=== PATIENT | male | born 1980 | race Caucasian/White ===

== ENCOUNTER 2017-01-01 06:55 | Emergency (ER) | payer OTHER ==
[~2017-01-01] VITALS: Ht 175.3 cm; Wt 80.3 kg
[~2017-01-01 06:55] MED LIST: ATARAX10 MG PO
[2017-01-01 08:47] LABS: HEMATOCRIT 35.5 % (38.0-50.0); MCH 30.4 PG (29.0-34.0); MCHC 33.5 G/DL (30.0-36.0); MCV 90.8 FL (86-99); MEAN PLAT.VOLUME 10.5 uM^3 (9.0-12.4); PLATELET COUNT 184 K/uL (156-360); RBC DIS.WIDTH-CV 12.6 % (11.8-14.6); RED BLOOD COUNT 3.91 M/uL (4.00-5.50); WHITE BLOOD COUNT 12.1 K/uL (4.1-10.2)
[2017-01-01 09:00] LABS: CHLORIDE 114 mEq/L (99-109); POTASSIUM 4.6 mEq/L (3.7-5.4); SODIUM 140 mEq/L (136-147)
[2017-01-01 09:01] LABS: GLUCOSE 96 mg/dL (70-99)
[2017-01-01 09:03] LABS: ANION GAP 5 MEQ/L (2-14)
[2017-01-01 09:05] LABS: GFR ESTIMATE (CALCULATED) > 59 mL/min/
[2017-01-01 09:06] LABS: UREA NITROGEN (BUN) 26 mg/dL (9-23)
[2017-01-01 09:09] LABS: ADD MIUA? NO; BILIRUBIN NEGATIVE; BLOOD NEGATIVE; COLOR YELLOW ((YELLOW)); GLUCOSE (STRIP) NEGATIVE; KETONES NEGATIVE; LEUKOCYTES NEGATIVE; NITRITE NEGATIVE; PH, URINE 5.5 (5-8); PROTEIN (STRIP) 30; SPECIFIC GRAVITY 1.024 (1.000-1.030); UCUL ADDED? NO; UROBILINOGEN 0.2 MG/DL (0.2-1.0)
[2017-01-01 09:23] LABS: AMPHETAMINE NEGATIVE (500 ng/mL); BARBITURATES NEGATIVE (200 ng/mL); BENZODIAZEPINES NEGATIVE (150 ng/mL); COCAINE NEGATIVE (150 ng/mL); METHADONE NEGATIVE (200 ng/mL); METHAMPHETAMINE NEGATIVE (500 ng/mL); OPIATES (MORPHINE) NEGATIVE (100 ng/mL); OXYCODONE NEGATIVE (100 ng/mL); PHENCYCLIDINE NEGATIVE (25 ng/mL); PROPOXYPHENE NEGATIVE (300 ng/mL); THC CANNABINOIDS NEGATIVE (50 ng/mL); TRICYCLIC ANTIDEPRESSANTS NEGATIVE (300 ng/mL)
[2017-01-01 09:24] LABS: INTERNAL CONTROLS VALID? YES
[2017-01-01 09:40] VITALS: BP 106/68
== END 2017-01-01 09:43 | disposition home or self-care (01) ==
LOC: EME 06:55
PROVIDERS: Emergency Medicine
DX: R55 Syncope and collapse (principal); E86.0 Dehydration; F17.200 Nicotine dependence, unspecified, uncomplicated; F19.10 Other psychoactive substance abuse, uncomplicated
CPT/HCPCS: 70450; 80048; 81003; 85027; 99281; 99284; J7030

== ENCOUNTER 2017-04-13 21:39 | Emergency (ER) | payer OTHER | END 2017-04-14 00:10 | disposition left against medical advice (07) | LOC: EME 21:39 | DX: Z53.21 Procedure and treatment not carried out due to patient leaving prior to being seen by health care provider (principal) ==

== ENCOUNTER 2017-04-22 17:41 | Emergency (ER) | payer OTHER | END 2017-04-22 17:52 | disposition left against medical advice (07) | LOC: EME 17:41 | DX: Z53.21 Procedure and treatment not carried out due to patient leaving prior to being seen by health care provider (principal) ==

== ENCOUNTER 2017-04-22 18:51 | Emergency (ER) | payer OTHER ==
[~2017-04-22] VITALS: Ht 177.8 cm; Wt 72.0 kg
[2017-04-22 19:11] VITALS: BP 106/67
== END 2017-04-22 19:28 | disposition home or self-care (01) ==
LOC: EME 18:51
DX: F43.9 Reaction to severe stress, unspecified (principal); Z04.6 Encounter for general psychiatric examination, requested by authority; F17.200 Nicotine dependence, unspecified, uncomplicated
CPT/HCPCS: 99281; 99282

== ENCOUNTER 2017-04-27 15:01 | Emergency (ER) | payer OTHER ==
[2017-04-27 15:22] LABS: EOSINOPHIL (%) 1.3 % (0-5); EOSINOPHIL COUNT 0.1 K/uL (0-0.3); HEMATOCRIT 37.9 % (38.0-50.0); IMMATURE GRANULOCYTE (%) 0.2 % (0.0-0.7); LYMPHOCYTE COUNT 1.7 K/uL (1.0-2.8); MCH 29.7 PG (29.0-34.0); MEAN PLAT.VOLUME 10.2 uM^3 (9.0-12.4); MONOCYTE (%) 6.1 % (3-12); MONOCYTE COUNT 0.4 K/uL (0-0.8); NEUTROPHIL (%) 64.7 % (45-76); PLATELET COUNT 187 K/uL (156-360); RBC DIS.WIDTH-CV 12.5 % (11.8-14.6); RED BLOOD COUNT 4.21 M/uL (4.00-5.50); WHITE BLOOD COUNT 6.1 K/uL (4.1-10.2)
[2017-04-27 15:32] LABS: AMYLASE 52 IU/L (1-118); CHLORIDE 103 mEq/L (99-109); POTASSIUM 3.4 mEq/L (3.7-5.4); SODIUM 138 mEq/L (136-147)
[2017-04-27 15:34] LABS: GLUCOSE 132 mg/dL (70-99)
[2017-04-27 15:36] LABS: ANION GAP 13 MEQ/L (2-14)
[2017-04-27 15:37] LABS: SERUM ETHYL ALCOHOL < 10 mg/dL
[2017-04-27 15:38] LABS: GFR ESTIMATE (CALCULATED) > 59 mL/min/
[2017-04-27 15:39] LABS: UREA NITROGEN (BUN) 14 mg/dL (9-23)
[2017-04-27 15:41] LABS: LIPASE 14 U/L (1.0-51.0)
[2017-04-27 16:54] LABS: CREATINE KINASE 372 IU/L (1-294)
[2017-04-27 16:59] LABS: ADD MIUA? NO; BILIRUBIN NEGATIVE; BLOOD NEGATIVE; COLOR STRAW ((YELLOW)); GLUCOSE (STRIP) NEGATIVE; KETONES NEGATIVE; LEUKOCYTES NEGATIVE; NITRITE NEGATIVE; PROTEIN (STRIP) NEGATIVE; SPECIFIC GRAVITY 1.008 (1.000-1.030); UCUL ADDED? NO; UROBILINOGEN 0.2 MG/DL (0.2-1.0)
[2017-04-27 17:28] LABS: ADD MEDTOX COMMENT Y; AMPHETAMINE NEGATIVE (500 ng/mL); BARBITURATES NEGATIVE (200 ng/mL); BENZODIAZEPINES NEGATIVE (150 ng/mL); COCAINE NEGATIVE (150 ng/mL); INTERNAL CONTROLS VALID? YES; METHADONE NEGATIVE (200 ng/mL); METHAMPHETAMINE NEGATIVE (500 ng/mL); OPIATES (MORPHINE) NEGATIVE (100 ng/mL); OXYCODONE NEGATIVE (100 ng/mL); PHENCYCLIDINE NEGATIVE (25 ng/mL); PROPOXYPHENE NEGATIVE (300 ng/mL); THC CANNABINOIDS PRESUMPTIVE POSITIVE (50 ng/mL); TRICYCLIC ANTIDEPRESSANTS NEGATIVE (300 ng/mL)
== END 2017-04-27 17:48 | disposition home or self-care (01) ==
LOC: EME 15:01 → TRA 15:01 → EME 15:01 → TRA 17:48
PROVIDERS: Emergency Medicine
PROC: 0HQ1XZZ Repair Face Skin, External Approach (ICD-10-PCS; principal; 2017-04-27)
DX: S01.81XA Laceration without foreign body of other part of head, initial encounter (principal); S02.40EA Zygomatic fracture, right side, initial encounter for closed fracture; F19.10 Other psychoactive substance abuse, uncomplicated; Y04.8XXA Assault by other bodily force, initial encounter; Y07.9 Unspecified perpetrator of maltreatment and neglect
CPT/HCPCS: 70450; 72125; 80048; 81003; 82150; 82550; 83690; 84999; 85025; 86900; 86901; 99281; 99285; G0480; J7030

== ENCOUNTER 2017-04-30 18:32 | Emergency (ER) | payer OTHER ==
[~2017-04-30] VITALS: Ht 177.8 cm; Wt 73.1 kg
[2017-04-30 20:02] VITALS: BP 111/56
== END 2017-04-30 20:04 | disposition home or self-care (01) ==
LOC: EME → EDBD 18:32 → EME 20:04
DX: T40.991A Poisoning by other psychodysleptics [hallucinogens], accidental (unintentional), initial encounter (principal); R41.82 Altered mental status, unspecified; F16.10 Hallucinogen abuse, uncomplicated; Y92.29 Other specified public building as the place of occurrence of the external cause; F17.200 Nicotine dependence, unspecified, uncomplicated
CPT/HCPCS: 99281; 99283

== ENCOUNTER 2017-05-29 20:08 | Emergency (ER) | payer OTHER ==
[~2017-05-29] VITALS: Ht 177.8 cm; Wt 65.6 kg
[2017-05-29 21:20] VITALS: BP 124/67
== END 2017-05-29 21:33 | disposition left against medical advice (07) ==
LOC: EME → EDBD 20:08 → EME 20:08
DX: R51 Headache (principal); F32.9 Major depressive disorder, single episode, unspecified; X83.8XXA Intentional self-harm by other specified means, initial encounter; F17.200 Nicotine dependence, unspecified, uncomplicated
CPT/HCPCS: 99281; 99284

== ENCOUNTER 2017-06-06 15:10 | Emergency (ER) | payer OTHER ==
[~2017-06-06] VITALS: Ht 177.8 cm; Wt 65.0 kg
[2017-06-06 17:15] VITALS: BP 115/76
== END 2017-06-06 17:33 | disposition home or self-care (01) ==
LOC: EME 15:10
DX: F12.10 Cannabis abuse, uncomplicated (principal); F17.200 Nicotine dependence, unspecified, uncomplicated
CPT/HCPCS: 99281; 99285; J7030

== ENCOUNTER 2017-06-25 07:17 | Emergency (ER) | payer OTHER ==
[~2017-06-25] VITALS: Ht 177.8 cm; Wt 68.8 kg
[2017-06-25 10:41] VITALS: BP 113/85
== END 2017-06-25 10:42 | disposition home or self-care (01) ==
LOC: EME 07:17
DX: T65.891A Toxic effect of other specified substances, accidental (unintentional), initial encounter (principal); R40.0 Somnolence; F17.210 Nicotine dependence, cigarettes, uncomplicated; Z59.0 Homelessness
CPT/HCPCS: 99281; 99282

== ENCOUNTER 2017-06-25 11:19 | Emergency (ER) | payer OTHER ==
[~2017-06-25] VITALS: Ht 177.8 cm; Wt 68.8 kg
[2017-06-25 16:10] VITALS: BP 109/68
== END 2017-06-25 16:12 | disposition home or self-care (01) ==
LOC: EME 11:19
DX: T65.891A Toxic effect of other specified substances, accidental (unintentional), initial encounter (principal); R40.0 Somnolence; F17.200 Nicotine dependence, unspecified, uncomplicated; Z59.0 Homelessness
CPT/HCPCS: 99281; 99284

== ENCOUNTER 2017-07-03 14:42 | Emergency (ER) | payer OTHER ==
[~2017-07-03] VITALS: Ht 180.3 cm; Wt 78.0 kg
[2017-07-03 15:36] LABS: HEMATOCRIT 33.1 % (38.0-50.0); MCH 30.6 PG (29.0-34.0); MCHC 33.5 G/DL (30.0-36.0); MCV 91.2 FL (86-99); MEAN PLAT.VOLUME 10.3 uM^3 (9.0-12.4); PLATELET COUNT 190 K/uL (156-360); RBC DIS.WIDTH-CV 12.5 % (11.8-14.6); RBC DIS.WIDTH-SD 41.7 % (39-53); RED BLOOD COUNT 3.63 M/uL (4.00-5.50); WHITE BLOOD COUNT 7.9 K/uL (4.1-10.2)
[2017-07-03 15:47] LABS: CHLORIDE 107 mEq/L (99-109); POTASSIUM 4.3 mEq/L (3.7-5.4); SODIUM 140 mEq/L (136-147)
[2017-07-03 15:48] LABS: GLUCOSE 114 mg/dL (70-99)
[2017-07-03 15:50] LABS: ANION GAP 8 MEQ/L (2-14)
[2017-07-03 15:51] LABS: SERUM ETHYL ALCOHOL < 10 mg/dL
[2017-07-03 15:52] LABS: GFR ESTIMATE (CALCULATED) > 59 mL/min/
[2017-07-03 15:53] LABS: UREA NITROGEN (BUN) 24 mg/dL (9-23)
[2017-07-03 15:55] LABS: CREATINE KINASE 189 IU/L (1-294); TOTAL CK 189 IU/L (1-294)
[2017-07-03 16:01] LABS: TROP-I INTERPRETATION NEGATIVE; TROPONIN-I < 0.01 ng/mL (0.0-0.30)
[2017-07-03 16:02] LABS: CK-MB 2.8 ng/mL (0.0-4.9)
[2017-07-03 17:08] VITALS: BP 116/75
== END 2017-07-03 17:09 | disposition home or self-care (01) ==
LOC: EME 14:42
PROVIDERS: Emergency Medicine
DX: T40.991A Poisoning by other psychodysleptics [hallucinogens], accidental (unintentional), initial encounter (principal); T52.8X1A Toxic effect of other organic solvents, accidental (unintentional), initial encounter; R46.89 Other symptoms and signs involving appearance and behavior; R53.83 Other fatigue; F16.10 Hallucinogen abuse, uncomplicated; F19.10 Other psychoactive substance abuse, uncomplicated; F17.200 Nicotine dependence, unspecified, uncomplicated
CPT/HCPCS: 80048; 82550; 82553; 84484; 85027; 99281; 99284; G0480; J2250; J7030

== ENCOUNTER 2017-07-28 21:17 | Emergency (ER) | payer OTHER ==
[~2017-07-28] VITALS: Ht 170.2 cm; Wt 73.0 kg
[2017-07-28 21:41] LABS: HEMATOCRIT 38.2 % (38.0-50.0); MCH 30.6 PG (29.0-34.0); MCHC 33.5 G/DL (30.0-36.0); MCV 91.4 FL (86-99); MEAN PLAT.VOLUME 9.8 uM^3 (9.0-12.4); PLATELET COUNT 235 K/uL (156-360); RBC DIS.WIDTH-CV 12.8 % (11.8-14.6); RBC DIS.WIDTH-SD 42.2 % (39-53); RED BLOOD COUNT 4.18 M/uL (4.00-5.50); WHITE BLOOD COUNT 7.8 K/uL (4.1-10.2)
[2017-07-28 21:52] LABS: CHLORIDE 105 mEq/L (99-109); POTASSIUM 3.9 mEq/L (3.7-5.4); SODIUM 138 mEq/L (136-147)
[2017-07-28 21:54] LABS: GLUCOSE 145 mg/dL (70-99)
[2017-07-28 21:55] LABS: ANION GAP 12 MEQ/L (2-14)
[2017-07-28 21:56] LABS: TOTAL BILIRUBIN 0.4 mg/dL (0.0-1.0)
[2017-07-28 21:57] LABS: SERUM ETHYL ALCOHOL < 10 mg/dL
[2017-07-28 21:58] LABS: ALKALINE PHOSPHATASE 68 IU/L (3-129); GFR ESTIMATE (CALCULATED) > 59 mL/min/
[2017-07-28 21:59] LABS: UREA NITROGEN (BUN) 22 mg/dL (9-23)
[2017-07-29 00:32] VITALS: BP 110/64
== END 2017-07-29 00:34 | disposition home or self-care (01) ==
LOC: EME 21:17
PROVIDERS: Emergency Medicine
DX: F19.10 Other psychoactive substance abuse, uncomplicated (principal); F17.200 Nicotine dependence, unspecified, uncomplicated
CPT/HCPCS: 80053; 81003; 85027; 99281; 99284; G0480

== ENCOUNTER 2017-07-30 13:19 | Emergency (ER) | payer OTHER ==
[~2017-07-30] VITALS: Ht 177.8 cm; Wt 70.0 kg
[2017-07-30 13:19] VITALS: BP 107/56
== END 2017-07-30 15:48 | disposition home or self-care (01) ==
LOC: EME 13:19
DX: F19.10 Other psychoactive substance abuse, uncomplicated (principal); F17.200 Nicotine dependence, unspecified, uncomplicated
CPT/HCPCS: 99281; 99283

== ENCOUNTER 2017-10-25 17:41 | Emergency (ER) | payer OTHER ==
[~2017-10-25] VITALS: Ht 177.8 cm; Wt 69.2 kg
[2017-10-25 17:43] VITALS: BP 116/65
== END 2017-10-25 18:38 | disposition home or self-care (01) ==
LOC: EME 17:41
DX: T40.991A Poisoning by other psychodysleptics [hallucinogens], accidental (unintentional), initial encounter (principal); F41.9 Anxiety disorder, unspecified; F17.200 Nicotine dependence, unspecified, uncomplicated; Z88.8 Allergy status to other drugs, medicaments and biological substances
CPT/HCPCS: 99281; 99283

== ENCOUNTER 2017-10-27 10:32 | Emergency (ER) | payer OTHER ==
[~2017-10-27] VITALS: Ht 177.8 cm; Wt 74.2 kg
[2017-10-27 13:52] VITALS: BP 108/61
== END 2017-10-27 13:53 | disposition home or self-care (01) ==
LOC: EME 10:32
DX: S00.83XA Contusion of other part of head, initial encounter (principal); F19.10 Other psychoactive substance abuse, uncomplicated; F41.9 Anxiety disorder, unspecified; F32.9 Major depressive disorder, single episode, unspecified; F17.200 Nicotine dependence, unspecified, uncomplicated; Y92.488 Other paved roadways as the place of occurrence of the external cause; W22.8XXA Striking against or struck by other objects, initial encounter; Z88.8 Allergy status to other drugs, medicaments and biological substances; Z59.0 Homelessness
CPT/HCPCS: 70450; 99281; 99284

== ENCOUNTER 2018-01-23 16:52 | Emergency (ER) | payer OTHER ==
[~2018-01-23] VITALS: Ht 177.8 cm; Wt 82.4 kg
[2018-01-23 20:55] VITALS: BP 132/76
== END 2018-01-23 20:55 | disposition home or self-care (01) ==
LOC: EME 16:52
DX: F12.10 Cannabis abuse, uncomplicated (principal); F32.9 Major depressive disorder, single episode, unspecified; F41.9 Anxiety disorder, unspecified; F17.200 Nicotine dependence, unspecified, uncomplicated; Z88.8 Allergy status to other drugs, medicaments and biological substances
CPT/HCPCS: 99281; 99283